=== PATIENT | female | born 1970 | race Caucasian/White ===

== ENCOUNTER 2016-06-05 12:16 | Emergency (ER) | payer BC, MEDICAID, OTHER ==
[~2016-06-05] VITALS: Ht 160 cm; Wt 63.5 kg
[~2016-06-05 12:16] MED LIST: ACETAMINOPHEN CODEINE PO; OMEP20CA10 PO
[2016-06-05 12:32] VITALS: BP 157/81; PULSE 89; RESP 16; TEMP 98.2; O2SAT 99
[2016-06-05] MEDS ORDERED: NACL 0.9% 1,000 ML IV ONE (12:45)
[2016-06-05] MEDS ORDERED: KETOROLAC TROMETHAMINE 30 MG VIAL IVP ONE (12:45)
[2016-06-05] MEDS ORDERED: ONDANSETRON HCL 4 MG/2 ML VIAL IVP ONE (12:45)
[2016-06-05] MEDS ORDERED: PROCHLORPERAZINE EDISYLATE 10 MG/2 ML VIAL IVP ONE (12:45)
[2016-06-05 12:57] LABS: EOSINOPHILS # (AUTO) 0.1 K/uL (0.0-0.4); EOSINOPHILS % (AUTO) 0.5 % (0.0-4.0); HEMATOCRIT 40.7 % (36-48); HEMOGLOBIN 13.8 g/dL (12.0-16.0); LYMPHOCYTES # (AUTO) 0.9 K/uL (1.0-5.5); LYMPHOCYTES % (AUTO) 7.4 % (20.5-51.5); MEAN CORPUSCULAR HEMOGLOBIN 30 pg (27-31); MEAN CORPUSCULAR HGB CONC 34 % (32-36); MEAN CORPUSCULAR VOLUME 87 fL (79.0-98.0); MONOCYTES # (AUTO) 0.2 K/uL (0.0-1.0); MONOCYTES % (AUTO) 1.6 % (1.7-9.3); NEUTROPHILS # (AUTO) 10.8 K/uL (1.8-7.7); NEUTROPHILS % (AUTO) 90.5 % (40.0-70.0); PLATELET COUNT (AUTO) 323 K/uL (130-430); RED BLOOD CELL COUNT(AUTO) 4.68 MIL/uL (4.2-6.2); RED CELL DISTRIBUTION WIDTH 11.2 % (9.0-15.0)
--- NOTE | 2016-06-05 13:01 | NUR ---
AMBULATED TO BED 4
[2016-06-05 13:04] LABS: BILIRUBIN,URINE NEGATIVE (NEGATIVE); CLARITY/URINE CLEAR (CLEAR); COLOR,URINE YELLOW (YELLOW); GLUCOSE,URINE NEGATIVE (NEGATIVE); KETONES,URINE NEGATIVE (NEGATIVE); LEUKOCYTE ESTERASE ,URINE NEGATIVE (NEGATIVE); NITRITE, URINE NEGATIVE (NEGATIVE); PROTEIN URINE NEGATIVE (NEGATIVE); UROBILINOGEN,URINE 0.2 (0.2-1.0)
[2016-06-05 13:06] LABS: CALCIUM 9.4 mg/dL (8.4-11.0); CREATININE 0.67 mg/dL (0.55-1.30)
[2016-06-05 13:07] LABS: BLOOD, URINE TRACE (NEGATIVE)
[2016-06-05 13:10] LABS: ALBUMIN 4.2 g/dL (3.4-4.8); TOTAL BILIRUBIN 0.5 mg/dL (0.0-1.0); TOTAL PROTEIN, SERUM 8.4 g/dL (6.4-8.3)
[2016-06-05 13:14] LABS: BACTERIA,URINE FEW /HPF (None Seen); MUCUS,URINE 1+ /LPF (None Seen); RBC,URINE 0-3 /HPF (0-3); WBC,URINE 0-3 /HPF (0-3)
--- NOTE | 2016-06-05 13:33 | NUR ---
Dr. Meraz at bedside for evaluation
--- NOTE | 2016-06-05 13:33 | NUR ---
Pt c/o n/v/d today and upper abd pain. Taking augmentin and clindamyin X1 week for infection on right index finger.
--- NOTE | 2016-06-05 13:50 | NUR ---
[facility]
[2016-06-05 14:02] LABS: BARBITURATE, URINE NEGATIVE (NEG <=200); URINE AMPHETAMINE NEGATIVE (NEG <=500)
[2016-06-05 14:03] LABS: BENZODIAZEPINE, URINE NEGATIVE (NEG <=150); CANNABINOID, URINE NEGATIVE (NEG <=50); COCAINE, URINE NEGATIVE (NEG <=150); METHAMPHETAMINES SCREEN,URINE NEGATIVE (NEG <=500); OPIATE, URINE NEGATIVE (NEG <=100); PHENCYCLIDINE SCREEN,URINE NEGATIVE (NEG <=25); UR TRICYCLIC ANTIDEPRESSANTS NEGATIVE (NEG <=300); URINE METHADONE NEGATIVE (NEG <=200); URINE OXYCODONE SCREEN NEGATIVE (NEG <=100); URINE PROPOXYPHENE SCREEN NEGATIVE (NEG <=300)
--- NOTE | 2016-06-05 15:05 | NUR ---
Patient care endorsed to me. Patient in ER C/O N/V. At this time patient states that "i feel ok, much better" No signs of acute distress.
[2016-06-05 15:52] VITALS: BP 124/71; PULSE 78; RESP 16; TEMP 97.9; O2SAT 99
--- NOTE | 2016-06-05 15:52 | NUR ---
Patient given written and verbal discharge instructions and verbalizes understanding. ER MD Meraz discussed with patient the results and treatment provided. Patient in stable condition. ID arm band removed. Rx of patricia & diana given. Patient educated on pain management and to follow up with PMD. Pain Scale 0/10. Opportunity for questions provided and answered.
== END 2016-06-05 15:52 | disposition home or self-care (01) ==
LOC: SED 12:16
DX: R10.13 Epigastric pain (principal); R11.2 Nausea with vomiting, unspecified; R19.7 Diarrhea, unspecified; R03.0 Elevated blood-pressure reading, without diagnosis of hypertension
CPT/HCPCS: 36415; 74176; 80053; 80307; 81000; 82150; 83690; 85025; 96374; 96375; 99285; J0780; J1885; J2405; J7030

== ENCOUNTER 2022-06-05 07:16 | Day surgery (SDC) | payer MEDICAID ==
[~2022-06-05] VITALS: Ht 160 cm; Wt 65.3 kg
[~2022-06-05 07:16] MED LIST changes: -OMEP20CA10 PO; +OMEP20CA15 PO
[2022-06-05] MEDS ORDERED: MEPERIDINE HCL/PF 25 MG/ML DISP.SYRIN ONE (07:44)
[2022-06-05] MEDS ORDERED: SIMETHICONE 40 MG/0.6 ML ML ONE (07:44)
[2022-06-05] MEDS ORDERED: MIDAZOLAM HCL 5 MG/5 ML VIAL ONE (07:45)
[2022-06-05] MEDS ORDERED: BENZOCAINE 20% 0.5mL UD SPRAY MM ONE (07:46)
[2022-06-05 13:37] VITALS: BP_SYST 138
== END 2022-06-05 11:20 | disposition home or self-care (01) ==
LOC: SMU 07:16 → SDS 07:16
PROVIDERS: ATTEND Internal Medicine
DX: R13.10 Dysphagia, unspecified (principal); K29.50 Unspecified chronic gastritis without bleeding; K21.9 Gastro-esophageal reflux disease without esophagitis; Z79.899 Other long term (current) drug therapy; Z20.822 Contact with and (suspected) exposure to COVID-19
CPT/HCPCS: 43239; 87426; 36415; 88305; 88312; 88313; 99152; G0378; J2250; J2175